=== PATIENT | female | born 1950 | race Hispanic/Latino ===

== ENCOUNTER → 2018-01-16 | Outpatient (CLI) | payer MEDICARE ==
[~2018-01-16] VITALS: Ht 149.9 cm; Wt 86.2 kg
[~2018-01-16] MED LIST: ASPI-1181 PO; CHOL100040 PO; CIPR250T6 PO; DAPA5TAB PO; FISH1CAP20 PO; FLUC100T8 PO; GABA-529 PO; GLIP5TAB11 PO; LEG CRAMPS PM PO; LISI2.5T2 PO; OMEP20CA10 PO; PANT40TA25 PO; POLY17PO3 PO; REGADENOSON 0.4 MG/5 ML PF SYG IVP ONE; REGADENOSON 0.4 MG/5 ML PF SYG IVP SCH; SIMV40TA5 PO; TRAM50TA4 PO
== END | disposition home or self-care (01) ==
LOC: SHCH 10:17
PROVIDERS: ATTEND Internal Medicine Cardiovascular Disease
DX: I25.10 Atherosclerotic heart disease of native coronary artery without angina pectoris (principal); R94.31 Abnormal electrocardiogram [ECG] [EKG]
CPT/HCPCS: 78452; 93017; A9500 ×2; J2785; 96374